=== PATIENT | female | born 1980 | race Caucasian/White ===

== ENCOUNTER 2021-07-08 18:12 | Emergency (ER) | payer OTHER, SELFPAY ==
--- NOTE | 2021-07-08 18:25 | ED.URI ---
HPI - URI/Sore Throat General Chief Complaint: Upper Respiratory Infection Stated Complaint: fever/sore throat Time Seen by Provider: 07/08/21 18:25 Source: patient Mode of arrival: ambulatory Limitations: no limitations History of Present Illness HPI Narrative: Marianne Freeman is a 41 yo female with a PMH who comes to [facility] with a severe sore throat feeling subjective fever and just not feeling well that started today. She states she has been exposed to strep and possibly Covid. Related Data Allergies Allergy/AdvReac Type Severity Reaction Status Date / Time No Known Allergies Allergy Verified 07/08/21 18:38 Review of Systems Review of Systems: CONSTITUTIONAL: Subjective fever, has chills, sweats. EYES: Denies visual changes, redness, discharge. ENT: Denies rhinorrhea, has congestion, has sore throat, otalgia. CARDIOVASCULAR: Denies chest pain, palpitations, edema. RESPIRATORY: Denies dyspnea, wheezing, cough GASTROINTESTINAL: Denies abdominal pain, nausea, vomiting, diarrhea. GENITOURINARY: Denies dysuria, hematuria, abnormal discharge SKIN: Denies rash or itching. NEUROLOGIC: Denies numbness, or focal weakness. PSYCHIATRIC: Denies anxiety or depression. [facility] Past Medical History Medical History GERD (gastroesophageal reflux disease) Social History Social History Smoking status: Never smoker Alcohol intake: current Comments At time of signature, I agree with nursing past medical, surgical, social and family history. There is no relevant family history pertinent to the presenting complaint. Exam Narrative: GENERAL: This is a well-nourished, well-developed patient, in moderate distress. Appears not feel well HEAD: normocephalic, atraumatic. EYES: Sclera clear/white. Vision is grossly intact. EARS: External ears normal, auditory canals clear and without drainage, TMs normal without perforation. Hearing grossly intact. NOSE: External nose normal without nasal discharge, nares with redness, has rhinorrhea. THROAT: Mucous membranes moist, posterior pharynx beefy erythema with 2+ tonsillar edema NECK: Neck supple, mild tenderness CARDIOVASCULAR: Regular rate and rhythm without murmurs, gallops, or rubs. RESPIRATORY: Clear to auscultation. Breath sounds equal bilaterally. No wheezes, rales, or rhonchi. GASTROINTESTINAL: Abdomen soft, non-tender, SKIN: warm, intact with no suspicious lesions or rash, good texture and turgor. NEURO: awake, alert, and oriented to person, place and time. There were no obvious focal neurologic abnormalities. Steady gait EXTREMITIES: Normal range of motion. BACK: Nontender without deformity Course Course Emergency Course: Patient comes with sore throat not feeling well and subjective fever started today Strep test done was negative Flu test done was negative Covid [id number] off Patient placed on quarantine but also treated with amoxicillin and prednisone because of the clinical view of her throat; discussed dosing of Tylenol since patient has a stomach problem, scheduled for scope in the next week or so Vital Signs Vital signs: Vital Signs Temperature 98.6 F 07/08/21 18:29 Pulse Rate 91 07/08/21 18:29 Respiratory Rate 18 07/08/21 18:29 Blood Pressure 99/87 L 07/08/21 18:29 Pulse Oximetry 99 07/08/21 18:29 Temperature 98.6 F 07/08/21 18:29 Pulse Rate 91 07/08/21 18:29 Respiratory Rate 18 07/08/21 18:29 Blood Pressure 99/87 L 07/08/21 18:29 Pulse Oximetry 99 07/08/21 18:29 MDM - URI/Sore Throat Differential Diagnosis Differential diagnosis: Likely upper respiratory infection, sinusitis, viral infection, bronchitis, pharyngitis and other Lab Data Labs: Influenza A Screen Negative Reference Range: Negative Influenza B Screen Negative
[2021-07-08 18:29] VITALS: BP 99/87; PULSE 91; RESP 18; TEMP 37; O2SAT 99
[2021-07-11 20:20] LABS: SARS-CoV-2 RNA PCR Negative
== END 2021-07-08 18:59 | disposition home or self-care (01) ==
PROVIDERS: Emergency Provider Nurse Practitioner
DX: J06.9 Acute upper respiratory infection, unspecified (principal); J02.9 Acute pharyngitis, unspecified; Z87.891 Personal history of nicotine dependence; K21.9 Gastro-esophageal reflux disease without esophagitis
CPT/HCPCS: 87081; 87804; 87880; 99203; C9803; G0463; U0003; U0005

== ENCOUNTER 2022-01-20 17:08 | Emergency (ER) | payer OTHER, SELFPAY ==
[2022-01-20 17:40] VITALS: BP 120/94; PULSE 92; RESP 16; TEMP 36.6; O2SAT 100
--- NOTE | 2022-01-20 18:00 | ED.URI ---
HPI - URI/Sore Throat General Chief Complaint: Upper Respiratory Infection Stated Complaint: Sore Throat Time Seen by Provider: 01/20/22 18:00 Source: patient Mode of arrival: ambulatory Limitations: no limitations History of Present Illness HPI Narrative: Marianne Dao is a 41 yo female with a PMH of migraine who comes to express care with c/o sore throat. She is concerned that she may have gotten it from her boyfriend who has had a UTI but also was swabbed for strep. Pt states he has been together for a year and she is not concerned about having gonorrhea in her pharynx but she did ask about transmission of infections with oral or vaginal sex Related Data Home Medications Medication Instructions Recorded Confirmed sumatriptan succinate 50 mg PO PRN PRN 01/20/22 01/20/22 Allergies Allergy/AdvReac Type Severity Reaction Status Date / Time No Known Allergies Allergy Verified 01/20/22 17:33 Review of Systems Review of Systems: CONSTITUTIONAL: Denies fever, chills, sweats. EYES: Denies visual changes, redness, discharge. ENT: Denies rhinorrhea, congestion, has sore throat, otalgia. CARDIOVASCULAR: Denies chest pain, palpitations, edema. RESPIRATORY: Denies dyspnea, wheezing, cough GASTROINTESTINAL: Denies abdominal pain, nausea, vomiting, diarrhea. GENITOURINARY: Denies dysuria, hematuria, abnormal discharge SKIN: Denies rash or itching. NEUROLOGIC: Denies numbness, or focal weakness. PSYCHIATRIC: Denies anxiety or depression. [facility] Past Medical History Medical History GERD (gastroesophageal reflux disease) Social History Social History Smoking status: Never smoker Alcohol intake: current Comments At time of signature, I agree with nursing past medical, surgical, social and family history. There is no relevant family history pertinent to the presenting complaint. Exam Narrative: GENERAL: This is a well-nourished, well-developed patient, in mild distress. HEAD: normocephalic, atraumatic. EYES: . Sclera clear/white. Vision is grossly intact. EARS: External ears normal, Hearing grossly intact. NOSE: External nose normal without nasal discharge, nares without redness, no rhinorrhea. THROAT: Mucous membranes moist, mild erythema posterior pharynx, no exudate NECK: Neck supple, non-tender CARDIOVASCULAR: Regular rate and rhythm without murmurs, gallops, or rubs. RESPIRATORY: Clear to auscultation. Breath sounds equal bilaterally. No wheezes, rales, or rhonchi. GASTROINTESTINAL: Abdomen soft, SKIN: warm, intact with no suspicious lesions or rash, good texture and turgor. NEURO: awake, alert, and oriented to person, place and time. There were no obvious focal neurologic abnormalities. Steady gait EXTREMITIES: Normal range of motion. BACK: Nontender without deformity Course Course Emergency Course: Patient here for complaints of sore throat Strep test negative Discussed origins of the sore throat, strep test was negative, informed patient that she could get gonorrhea or other STD if her boyfriend had 1one. She states that that is not possible since they have been together for a year so she was going to treat as a viral infection. discussed use of cepacol lozenges and Zyrtec and Tylenol or ibuprofen for pain Level of Care: Express Care Visit Vital Signs Vital signs: Vital Signs Temperature 97.9 F 01/20/22 17:40 Pulse Rate 92 01/20/22 17:40 Respiratory Rate 16 01/20/22 17:40 Blood Pressure 120/94 H 01/20/22 17:40 Pulse Oximetry 100 01/20/22 17:40 Temperature 97.9 F 01/20/22 17:40 Pulse Rate 92 01/20/22 17:40 Respiratory Rate 16 01/20/22 17:40 Blood Pressure 120/94 H 01/20/22 17:40 Pulse Oximetry 100 01/20/22 17:40 MDM - URI/Sore Throat Differential Diagnosis Differential diagnosis: Likely upper respiratory infection, pharyngitis and other Lab Data
== END 2022-01-20 18:15 | disposition home or self-care (01) ==
PROVIDERS: Emergency Provider Nurse Practitioner; PCP Registered Nurse
DX: J02.9 Acute pharyngitis, unspecified (principal); K21.9 Gastro-esophageal reflux disease without esophagitis
CPT/HCPCS: 87081; 87880; 99213; G0463

== ENCOUNTER 2022-09-10 10:01 | Emergency (ER) | payer BC, OTHER, SELFPAY ==
[2022-09-10 10:13] VITALS: BP 115/75; PULSE 95; RESP 18; TEMP 36.5; O2SAT 100
[2022-09-10 10:14] VITALS: BP 115/75; PULSE 95; RESP 18; TEMP 36.5; O2SAT 100
--- NOTE | 2022-09-10 10:38 | ED.URI ---
HPI - URI/Sore Throat General Chief Complaint: Upper Respiratory Infection Stated Complaint: headache Source: patient Mode of arrival: ambulatory Limitations: no limitations History of Present Illness HPI Narrative: 42-year-old female presents to [facility] with complaints of headache intermittently for the past 4 days. Patient reports that the headache is worse when she bends over. Denies current headache. Patient reports that her daughter was recently ill with cold-like symptoms. Patient reports that she also noticed a rash to the lateral aspect of her left breast this morning. Patient denies new medications, new soaps, shortness of breath, wheezing, nausea, vomiting or diarrhea. Patient reports that she has had body aches, chills and subjective fevers. MD elicited complaint: other (headache ) Onset (ago): day(s) (4) Severity: mild Able to tolerate fluids by mouth: Yes Exacerbating factors: nothing Relieving factors: nothing Context: sick contacts Associated symptoms: rash Treatments prior to arrival: ibuprofen Related Data Home Medications Medication Instructions Recorded Confirmed sumatriptan succinate 50 mg tablet 50 mg PO PRN PRN Migraine Headache 01/20/22 09/10/22 Allergies Allergy/AdvReac Type Severity Reaction Status Date / Time No Known Allergies Allergy Verified 09/10/22 10:13 Review of Systems Constitutional: Constitutional: Reports chills, Denies fatigue, Reports fever(s) and Denies weakness ENT: Denies vertigo, Denies dizziness, Denies nasal congestion and Denies sore throat Respiratory: Respiratory: Denies chest congestion, Denies cough, Denies dyspnea and Denies wheezing Gastrointestinal: Gastrointestinal: Denies abdominal pain, Denies diarrhea, Denies nausea and Denies vomiting Integumentary/Breasts: Skin/Breast: Reports rash Neurologic: Denies confusion, Denies vertigo, Denies dizziness, Denies syncope and Reports headache(s) Allergic/Immunologic: Allergic/Immunologic: Denies throat swelling, Denies tongue swelling and Denies wheezing PMF Past Medical History Medical History GERD (gastroesophageal reflux disease) Social History Social History Smoking status: Never smoker Alcohol intake: current Comments At time of signature, I agree with nursing past medical, surgical, social and family history. There is no relevant family history pertinent to the presenting complaint. Exam Const: General: healthy appearing, no acute distress and alert; No confusion, diaphoretic or ill appearing Nutritional Appearance: well nourished Orientation/consciousness: patient oriented x3 Limitations: no limitations HENMT: Head: normal to inspection Face and sinus: normal facial exam Mouth: Yes lip normal and Yes moist mucous membranes Throat: posterior oropharynx normal and uvula midline Neck: Neck: normal visual inspection Resp: Effort & Inspection: normal respiratory effort, not labored and not tachypneic Auscultation: clear to auscultation bilaterally, no crackles, no rales, no rhonchi and no wheezes Cardio: Rate: regular rate Rhythm: regular rhythm Heart sounds: no murmurs GI: GI Palp: Yes Soft to palpation, No Tenderness to palpation present (GI), No Guarding due to palpation present (GI) and No Rigid due to palpation Skin: General skin exam: normal color Wounds: no wounds Other: Erythematous vesicular rash noted to left breast region likely representing early onset of shingles type rash. Neuro: General: patient oriented x3, moves all extremities, no meningeal signs and no focal motor deficits Cranial nerves: Yes Nystagmus not present Speech: normal speech Gait exam (Neuro): Normal gait present Extrem: General: normal to inspection Psych: Affect: normal affect Attitude: cooperative Course Course Level of Care: Express Care Visit Vital Signs Vital signs: Vital S
== END 2022-09-10 10:51 | disposition home or self-care (01) ==
PROVIDERS: Emergency Provider Nurse Practitioner Family; PCP Registered Nurse
DX: B34.9 Viral infection, unspecified (principal); B02.9 Zoster without complications; Z20.822 Contact with and (suspected) exposure to COVID-19; K21.9 Gastro-esophageal reflux disease without esophagitis
CPT/HCPCS: 87426; 87804; 99213; C9803; G0463